=== PATIENT | female | born 1960 | race Caucasian/White ===

== ENCOUNTER 2016-12-23 00:57 | Observation (INO) | payer BC ==
[~2016-12-23] VITALS: Ht 162.6 cm; Wt 89.6 kg
[2016-12-23 01:21] LABS: MCH 28.7 PG (29.0-34.0); MCHC 33.3 G/DL (30.0-36.0); MCV 86.2 FL (83-99); MEAN PLAT.VOLUME 10.3 uM^3 (9.5-12.4); PLATELET COUNT 311 K/uL (156-360); RBC DIS.WIDTH-CV 12.2 % (11.8-14.6); RBC DIS.WIDTH-SD 38.6 % (39-53); RED BLOOD COUNT 4.87 M/uL (3.80-5.20); WHITE BLOOD COUNT 14.7 K/uL (4.1-10.2)
[2016-12-23 01:31] LABS: CHLORIDE 100 mEq/L (99-109); POTASSIUM 3.6 mEq/L (3.7-5.4); SODIUM 138 mEq/L (136-147)
[2016-12-23 01:33] LABS: GLUCOSE 113 mg/dL (70-99)
[2016-12-23 01:34] LABS: ANION GAP 11 MEQ/L (2-14)
[2016-12-23 01:37] LABS: GFR ESTIMATE (CALCULATED) 50 mL/min/
[2016-12-23 01:38] LABS: UREA NITROGEN (BUN) 21 mg/dL (9-23)
[2016-12-23 03:08] LABS: D-DIMER ELISA 2.31 mg/L FEU (< 0.57)
[2016-12-23 03:12] LABS: TOTAL BILIRUBIN 0.4 mg/dL (0.0-1.0)
[2016-12-23 03:13] LABS: ALKALINE PHOSPHATASE 96 IU/L (3-129)
[2016-12-23 03:15] LABS: DIRECT BILIRUBIN 0.2 mg/dL (0.0-0.3)
[2016-12-23 03:18] LABS: TROP-I INTERPRETATION NEGATIVE; TROPONIN-I < 0.01 ng/mL (0.0-0.30)
[2016-12-23 07:30] VITALS: BP 109/60
[2016-12-23 09:45] VITALS: BP 115/68
[2016-12-23 10:49] VITALS: BP 107/55
[2016-12-23 11:31] VITALS: BP 112/67
[2016-12-23 15:51] VITALS: BP 103/55
[2016-12-23] MEDS ORDERED: CELEBREX100 MG PO (16:12)
[2016-12-23] MEDS ORDERED: CELEXA10 MG PO (16:13)
[2016-12-23] MEDS ORDERED: HYDROCHLOROTH12.5 M3 PO (16:13)
[2016-12-23] MEDS ORDERED: PREVACID30 MG PO (16:14)
[2016-12-23] MEDS ORDERED: LIPITOR20 MG PO (16:14)
[2016-12-23] MEDS ORDERED: NIACIN1000 MG PO (16:15)
[2016-12-23] MEDS ORDERED: VITAMIN D2000 UNI1 PO (16:16)
[2016-12-23] MEDS ORDERED: ASPIRIN325 MG PO (16:16)
[2016-12-23] MEDS ORDERED: ZYRTEC10 M3 PO (16:17)
[2016-12-23 17:00] LABS: BASOPHIL COUNT 0.1 K/uL (0-0.1); EOSINOPHIL (%) 1.5 % (0-5); EOSINOPHIL COUNT 0.2 K/uL (0-0.3); HEMATOCRIT 36.5 % (36.0-46.0); IMMATURE GRANULOCYTE (%) 0.2 % (0.0-0.7); LYMPHOCYTE COUNT 3.8 K/uL (1.0-2.8); MCH 28.9 PG (29.0-34.0); MCHC 33.2 G/DL (30.0-36.0); MCV 87.1 FL (83-99); MEAN PLAT.VOLUME 10.3 uM^3 (9.5-12.4); MONOCYTE (%) 7.8 % (3-12); MONOCYTE COUNT 0.9 K/uL (0-0.8); NEUTROPHIL (%) 55.2 % (45-76); PLATELET COUNT 254 K/uL (156-360); RBC DIS.WIDTH-CV 12.7 % (11.8-14.6); RED BLOOD COUNT 4.19 M/uL (3.80-5.20); WHITE BLOOD COUNT 10.8 K/uL (4.1-10.2)
[2016-12-23 17:24] LABS: ANION GAP 8 MEQ/L (2-14); CHLORIDE 102 MEQ/L (99-109); GFR ESTIMATE (CALCULATED) > 59 mL/min/; GLUCOSE 104 mg/dL (70-99); POTASSIUM 4.1 MEQ/L (3.7-5.4); SAMPLE HEMOLYSIS CHECK 0; SAMPLE ICTERIC CHECK 0; SAMPLE LIPEMIA CHECK 0; SODIUM 136 MEQ/L (136-147); UREA NITROGEN (BUN) 17 mg/dL (9-23)
[2016-12-23] MEDS ORDERED: LISINOPRIL20 MG PO (17:44)
[2016-12-23] MEDS ORDERED: ASPIR 8181 M1 PO (17:44)
[2016-12-23 20:00] VITALS: BP 110/56
== END 2016-12-23 20:15 | disposition home or self-care (01) ==
LOC: EME 00:57 → EDOF 06:01 → 5WEST 07:19
PROVIDERS: Hospitalist
DX: R55 Syncope and collapse (principal); E87.6 Hypokalemia; D72.829 Elevated white blood cell count, unspecified; E66.3 Overweight; I10 Essential (primary) hypertension
CPT/HCPCS: 70551; 71020; 71275; 80048; 80048 91; 80076; 84484; 85025; 85027; 85379; 93005; 99281; 99285; G0378; J1650; J7030